=== PATIENT | male | born 1995 ===

== ENCOUNTER 2017-03-18 11:14 | Emergency (ER) | payer BC, OTHER ==
[~2017-03-18] VITALS: Ht 170.2 cm; Wt 85.6 kg
[2017-03-18 11:24] VITALS: TEMP 36.8; Ht 170.2 cm; Wt 85.6 kg
[2017-03-18] MEDS ORDERED: CETI10TA84 PO (11:54)
[2017-03-18] MEDS ORDERED: DOXY50CA26 PO (11:54)
[2017-03-18] MEDS ORDERED: HYDROCODONE/ACETAMOPHEN 5/325MG TAB PO ONE (12:30)
--- NOTE | 2017-03-18 12:41 | EMERGENCY ROOM VISIT NOTE ---
ED Visit Note First contact with patient: 12:07 Chief Complaint: Back and RIGHT Hand Pain History of Present Illness: Patient is a 21-year-old male who presents to the emergency Department this morning for evaluation of his RIGHT-sided low back pain. He reports that he slipped and fell striking a step yesterday. He had immediate pain to the RIGHT-sided low back. He reports icing the area and taking ibuprofen last evening. Upon awakening today, he had increasing pain and had trouble getting out of bed secondary to pain with changes in position. Patient reports no prior history of lumbar injury. He reports pain with movement of the RIGHT lower extremity as she reports a pulling sensation in his back. He denies any numbness or tingling into the distal extremity. He denies a loss of control bowel/bladder or saddle anesthesia. The patient rates his current discomfort as a 7/10. He denies any hip pain, knee pain, ankle pain, or foot pain. He denies any abdominal pain, hematuria, or dysuria. Medications: No current medications. Allergies: No medication allergies. PMH: No pertinent past medical history. 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 ROS: All pertinent positive and negative review of systems are appropriately documented in the History of Present Illness. Physical Exam: VITAL SIGNS - Vital signs and nursing notes were reviewed. GENERAL - 21-year-old male appearing his stated age and in noticeable discomfort throughout the exam. NECK - FROM of the cervical spine. ABDOMEN - Abdominal contour flat without pulsations or visible masses. BS normoactive all four quadrants. No tenderness, palpable masses, hepatosplenomegaly, or ascites noted. MUSCULOSKELETAL - ROM of the lumbar spine region was limited secondary to patient discomfort. Pt was laying on the exam table. Pt made guarded movements when asked to change position. No step-off deformities were palpated down the thoracolumbar spines. Moderate Tenderness to Palpation experienced at the level of the RIGHT sided lumbar paraspinal muscle distribution. No reproducible tenderness to palpation across the iliac spine. NEUROLOGIC - REFLEXES: +3/4 patellar reflexes B/L. SENSORY: Spinothalamic tract was found to be intact with ability to discriminate sharp versus dull sensation at the level of hip joint down do the great toe. No sensory defects of the dorsal column were appreciated utilizing light touch for evaluation. CEREBELLAR: Pt able to perform rapid alternating movements of the feet. EXTREMITIES - Range of Motion - No tremors, ticks, or fasciculations of the lower extremities noticed during inspection. FROM of the lower extremities. Pt had +5/5 strength appreciated bilaterally in the lower extremities against examiner's resistance. VASCULAR - Capillary refill of the great toe was brisk. No mottling or blanching of the extremities present. +3/5 dorsalis pedis pulses palpated bilaterally. IMAGING: LUMBAR SPINE 5 VIEWS HISTORY: Low back pain s/p fall COMPARISON: None. FINDINGS: There is no fracture. No subluxation. Disc spaces are preserved. IMPRESSION: No fracture or subluxation within the lumbar spine. ED Course: Patient was seen and evaluated by myself. Patient was provided one Goddard for pain. X-ray of the lumbar spine was obtained. Imaging results were reviewed with the patient who acknowledges understanding. The patient was educated on worrisome symptoms for return visit to the emergency department. Patient discharged home in good condition. In the evaluation and treatment of this patient the following differential diagnoses were considered: Cauda equina syndrome, discitis, HNP, sciatica, epidural abscess, psoas abscess, musculoskeletal strain, lumbar fracture, lumbar dislocation, lumbar subluxation, spondylolisthesis, spondylosis, or compression fracture. Given the patient's presentation and exam findings, I did elect to perform the above-mentioned workup. The patient presents today with result pain to the RIGHT-sided paraspinal musculature. He has no worrisome radicular symptoms at this point. X-rays unremarkable. The patient will be placed on pain medication for breakthrough pain at home. He will follow-up with his primary care provider or return for any changing or worsening symptoms. Patient discharged home in good condition. Impression: Lumbar Contusion Discharge Instructions: You have been treated in the Emergency Department for Back Pain. You have received pain medicine in the emergency department which impairs your ability to operate a vehicle. It is illegal for you to drive after receiving these medicines. You have been prescribed Goddard to be used for pain control. This is a narcotic medication. You cannot drive or consume alcohol while on this medicine. This medicine should only be used for pain that cannot be controlled with over-the- counter pain medicines. For pain control, you can use the following [id number]-dzh-[id number] medicines (if >12 yo): - Regular strength (325mg/tab) Tylenol (acetaminophen) 2 tabs every 4-6 hours as needed. Do not exceed 12 tablets in a 24 hour period. Avoid taking more than 4 grams (4000 mg) of Tylenol per day. This includes any other sources of acetaminophen you may take on a regular basis. - Regular strength (200 mg/tab) Advil (ibuprofen) 1-2 tabs every 4-6 hours as needed. Do not exceed a dose of 3200 mg per day. If this is an acute injury, ice can be applied to the area of pain for the first 3 days to help decrease pain and inflammation. After the first 3 days, a heating pad can be used over the area for continued soothing relief. You should schedule a follow-up appointment in 2-3 days with your Primary Care Provider for further evaluation and treatment of your back pain. Return to the Emergency Department if your current symptoms worsen despite treatment course outlined above, or if you develop any of the following symptoms : intractable pain despite aforementioned treatment course, loss of control of your bowel or bladder, numbness or tingling in your groin, or development of a fever. Current/Historical Medications Scheduled Cetirizine (Zyrtec), 10 MG PO HS Doxycycline (Monohydrate) (Doxycycline), 1 TAB PO BID Naproxen (Naprosyn), 500 MG PO BID Scheduled PRN Hydrocodone/Acetaminophen 5MG/325MG (Goddard 5MG/325MG), 1-2 TABLET PO Q4H PRN for Pain Allergies Coded Allergies: Dust (Unverified Allergy, Unknown, RUNNY NOSE, 03/18/17) POLLEN (Unverified Allergy, Unknown, RUNNY NOSE, WATERY EYES, 03/18/17) Vital Signs Date Time Temp Pulse Resp B/P Pulse Ox O2 Delivery O2 Flow Rate FiO2 03/18/17 13:40 72 16 133/84 96 03/18/17 11:24 36.8 77 16 162/86 96 Room Air Medications Administered Medications (Trade) Dose Ordered Sig/Lanny Route Start Time Stop Time Status Last Admin Dose Admin Acetaminophen/ Hydrocodone Bitart (Goddard 5/325 Tab) 1 tab NOW ONCE PO 03/18/17 12:30 03/18/17 12:31 DC 03/18/17 12:54 1 TAB Departure Information Impression Primary Impression: Lumbar contusion Additional Impression: Fall Dispostion Home / Self-Care Condition GOOD Prescriptions Naproxen (Naprosyn) 500 Mg Tab 500 MG PO BID for 10 Days, #20 TAB Prov: Amilcar Jara PA-C 03/18/17 Hydrocodone/Acetaminophen 5MG/325MG (Goddard 5MG/325MG) Tab 1-2 TABLET PO Q4H Y for Pain, #15 TAB For Initial Treatment Prov: Amilcar Jara PA-C 03/18/17 Referrals No Doctor, Assigned (PCP) Patient Instructions My [facility] Additional Instructions You have been treated in the Emergency Department for Back Pain. You have received pain medicine in the emergency department which impairs your ability to operate a vehicle. It is illegal for you to drive after receiving these medicines. You have been prescribed Goddard to be used for pain control. This is a narcotic medication. You cannot drive or consume alcohol while on this medicine. This medicine should only be used for pain that cannot be controlled with over-the- counter pain medicines. For pain control, you can use the following [id number]-zso-[id number] medicines (if >12 yo): - Regular strength (325mg/tab) Tylenol (acetaminophen) 2 tabs every 4-6 hours as needed. Do not exceed 12 tablets in a 24 hour period. Avoid taking more than 4 grams (4000 mg) of Tylenol per day. This includes any other sources of acetaminophen you may take on a regular basis. - Regular strength (200 mg/tab) Advil (ibuprofen) 1-2 tabs every 4-6 hours as needed. Do not exceed a dose of 3200 mg per day. If this is an acute injury, ice can be applied to the area of pain for the first 3 days to help decrease pain and inflammation. After the first 3 days, a heating pad can be used over the area for continued soothing relief. You should schedule a follow-up appointment in 2-3 days with your Primary Care Provider for further evaluation and treatment of your back pain. Return to the Emergency Department if your current symptoms worsen despite treatment course outlined above, or if you develop any of the following symptoms : intractable pain despite aforementioned treatment course, loss of control of your bowel or bladder, numbness or tingling in your groin, or development of a fever. Problem Qualifiers Primary Impression: Lumbar contusion Encounter type: initial encounter Qualified Codes: S30.0XXA - Contusion of lower back and pelvis, initial encounter Additional Impression: Fall Encounter type: initial encounter Qualified Codes: W19.XXXA - Unspecified fall, initial encounter
--- NOTE | 2017-03-18 13:01 | DIAGNOSTIC IMAGING REPORT ---
LUMBAR SPINE 5 VIEWS HISTORY: Low back pain s/p fall COMPARISON: None. FINDINGS: There is no fracture. No subluxation. Disc spaces are preserved. IMPRESSION: No fracture or subluxation within the lumbar spine. Electronically signed by: Ever Vick M.D. 03/18/2017 12:59 PM Dictated Date/Time: 03/18/2017 12:56 PM
[2017-03-18] MEDS ORDERED: NAPR-1169 PO (13:23)
[2017-03-18] MEDS ORDERED: HYDR-5688 PO (13:23)
[2017-03-18 13:40] VITALS: BP 133/84; PULSE 72; O2SAT 96
== END 2017-03-18 13:41 | disposition home or self-care (01) ==
LOC: C.EDB 11:15 → C.EDD 13:41
DX: S30.0XXA Contusion of lower back and pelvis, initial encounter (principal); W01.0XXA Fall on same level from slipping, tripping and stumbling without subsequent striking against object, initial encounter